=== PATIENT | male | born 1935 | race Caucasian/White ===

== ENCOUNTER 2017-02-02 11:20 | Inpatient (IN) | payer OTHER ==
[~2017-02-02] VITALS: Ht 182.9 cm; Wt 62.0 kg
[~2017-02-02 11:20] MED LIST: ACIDOPHILUS-PE1 EAC2 PO; ASPIR-TRIN325 M1 PO
[2017-02-02 12:15] LABS: EOSINOPHIL (%) 0.2 % (0-5); HEMATOCRIT 46.5 % (38.0-50.0); IMMATURE GRANULOCYTE (%) 0.4 % (0.0-0.7); INSTRUMENT ABS NEUTROPHIL CT 4.2 K/uL; LYMPHOCYTE COUNT 0.9 K/uL (1.0-2.8); MCH 31.4 PG (29.0-34.0); MCHC 30.8 G/DL (30.0-36.0); MEAN PLAT.VOLUME 10.9 uM^3 (9.0-12.4); MONOCYTE (%) 5.4 % (3-12); MONOCYTE COUNT 0.3 K/uL (0-0.8); NEUTROPHIL (%) 77.7 % (45-76); NEUTROPHIL COUNT 4.2 K/uL (1.8-6.4); PLATELET COUNT 194 K/uL (156-360); RBC DIS.WIDTH-CV 13.2 % (11.8-14.6); RED BLOOD COUNT 4.56 M/uL (4.00-5.50); WHITE BLOOD COUNT 5.4 K/uL (4.1-10.2)
[2017-02-02 12:23] LABS: INTER. NORMALIZED RATIO 1.5
[2017-02-02 12:42] LABS: GLUCOSE 136 mg/dL (70-99)
[2017-02-02 12:43] LABS: ANION GAP 8 MEQ/L (2-14)
[2017-02-02 12:46] LABS: GFR ESTIMATE (CALCULATED) 57 mL/min/
[2017-02-02 12:47] LABS: UREA NITROGEN (BUN) 40 mg/dL (9-23)
[2017-02-02 12:48] LABS: CHLORIDE 138 mEq/L (99-109)
[2017-02-02 12:49] LABS: SODIUM 171 mEq/L (136-147)
[2017-02-02 12:51] LABS: TROP-I INTERPRETATION NEGATIVE
[2017-02-02] MEDS ORDERED: EXELON PATCH9.5 MG TD (14:00)
[2017-02-02] MEDS ORDERED: MULTAQ400 MG PO (14:01)
[2017-02-02] MEDS ORDERED: MEMANTINE HCL10 MG PO (14:06)
[2017-02-02] MEDS ORDERED: OMEGA 3-6-9 11200 MG PO (14:12)
[2017-02-02] MEDS ORDERED: CULTURELLE KID1 EAC1 PO (14:21)
[2017-02-02] MEDS ORDERED: ESCITALOPRA5 MG/5 ML PO (14:22)
[2017-02-02] MEDS ORDERED: MILK OF MAGN PO (14:26)
[2017-02-02] MEDS ORDERED: BISAC-EVAC10 MG PR (14:27)
[2017-02-02] MEDS ORDERED: FLEET ENEMA-AD118 ML PR (14:29)
[2017-02-02] MEDS ORDERED: DOUNEB AEROSOL (14:38)
[2017-02-02 15:39] LABS: ADD MIUA? YES; BILIRUBIN NEGATIVE; BLOOD MODERATE; COLOR AMBER ((YELLOW)); GLUCOSE (STRIP) NEGATIVE; KETONES 5; LEUKOCYTES TRACE; NITRITE NEGATIVE; PROTEIN (STRIP) 30; SPECIFIC GRAVITY 1.023 (1.000-1.030)
[2017-02-02 15:45] LABS: BACTERIA NONE SEEN /HPF; EPITHELIAL CELLS RARE /HPF; MUCUS TRACE /LPF; RED BLOOD CELLS 30-40 /HPF (0-5); UCUL ADDED? YES
[2017-02-02 18:32] VITALS: BP 96/64
[2017-02-02 22:24] VITALS: BP 100/63
[2017-02-03 04:14] VITALS: BP 138/72
[2017-02-03 05:58] LABS: HEMATOCRIT 40.8 % (38.0-50.0); MCH 31.1 PG (29.0-34.0); MCHC 29.4 G/DL (30.0-36.0); MCV 105.7 FL (86-99); PLATELET COUNT 159 K/uL (156-360); RBC DIS.WIDTH-CV 13.3 % (11.8-14.6); RED BLOOD COUNT 3.86 M/uL (4.00-5.50); WHITE BLOOD COUNT 7.7 K/uL (4.1-10.2)
[2017-02-03 07:29] VITALS: BP 130/70
[2017-02-03 09:21] LABS: CHLORIDE 140 MEQ/L (99-109); GFR ESTIMATE (CALCULATED) > 59 mL/min/; GLUCOSE 111 mg/dL (70-99); POTASSIUM 3.7 MEQ/L (3.7-5.4); SODIUM 176 MEQ/L (136-147); UREA NITROGEN (BUN) 39 mg/dL (9-23)
[2017-02-03 11:31] VITALS: BP 128/70
[2017-02-03 15:49] VITALS: BP 109/72
[2017-02-03 20:32] VITALS: BP 120/71
[2017-02-04 01:16] VITALS: BP 100/59
[2017-02-04 04:30] VITALS: BP 110/70
[2017-02-04 06:44] LABS: ANION GAP 6 MEQ/L (2-14); CHLORIDE 138 MEQ/L (99-109); GFR ESTIMATE (CALCULATED) > 59 mL/min/; GLUCOSE 108 mg/dL (70-99); POTASSIUM 3.5 MEQ/L (3.7-5.4); SAMPLE HEMOLYSIS CHECK 0; SAMPLE ICTERIC CHECK 0; SAMPLE LIPEMIA CHECK 0; UREA NITROGEN (BUN) 30 mg/dL (9-23)
[2017-02-04 06:49] LABS: SODIUM 170 MEQ/L (136-147)
[2017-02-04 07:45] VITALS: BP 115/62
[2017-02-04 11:27] VITALS: BP 108/70
[2017-02-04 15:35] VITALS: BP 106/61
[2017-02-05] VITALS (7 sets, daily range): BP systolic 101–118; BP diastolic 53–63
[2017-02-05 09:13] LABS: ANION GAP 8 MEQ/L (2-14); CHLORIDE 128 MEQ/L (99-109); GFR ESTIMATE (CALCULATED) > 59 mL/min/; GLUCOSE 105 mg/dL (70-99); POTASSIUM 3.5 MEQ/L (3.7-5.4); SAMPLE HEMOLYSIS CHECK 0; SAMPLE ICTERIC CHECK 0; SAMPLE LIPEMIA CHECK 0; SODIUM 162 MEQ/L (136-147); UREA NITROGEN (BUN) 22 mg/dL (9-23)
[2017-02-06 07:24] VITALS: BP 114/61
[2017-02-06 15:31] VITALS: BP 127/73
[2017-02-06 15:36] LABS: POTASSIUM 3.6 mEq/L (3.7-5.4)
[2017-02-06 15:38] LABS: CHLORIDE 121 mEq/L (99-109); GLUCOSE 115 mg/dL (70-99); SODIUM 152 mEq/L (136-147)
[2017-02-06 15:40] LABS: ANION GAP 6 MEQ/L (2-14)
[2017-02-06 15:42] LABS: GFR ESTIMATE (CALCULATED) > 59 mL/min/
[2017-02-06 15:43] LABS: UREA NITROGEN (BUN) 16 mg/dL (9-23)
[2017-02-07] VITALS: BP 92/59
[2017-02-07 08:00] VITALS: BP 125/74
[2017-02-07 08:36] LABS: CHLORIDE 117 MEQ/L (99-109); GLUCOSE 87 mg/dL (70-99); POTASSIUM 3.7 MEQ/L (3.7-5.4); SODIUM 150 MEQ/L (136-147); UREA NITROGEN (BUN) 16 mg/dL (9-23)
[2017-02-07 09:11] LABS: ANION GAP 7 MEQ/L (2-14)
[2017-02-07 09:24] LABS: GFR ESTIMATE (CALCULATED) > 59 mL/min/
[2017-02-07 16:00] VITALS: BP 131/80
[2017-02-07 23:19] VITALS: BP 111/67
[2017-02-08 06:20] LABS: EOSINOPHIL (%) 2.1 % (0-5); EOSINOPHIL COUNT 0.2 K/uL (0-0.3); HEMATOCRIT 33.2 % (38.0-50.0); IMMATURE GRANULOCYTE (%) 0.2 % (0.0-0.7); INSTRUMENT ABS NEUTROPHIL CT 6.4 K/uL; LYMPHOCYTE COUNT 1.1 K/uL (1.0-2.8); MCHC 33.1 G/DL (30.0-36.0); MEAN PLAT.VOLUME 10.4 uM^3 (9.0-12.4); MONOCYTE (%) 5.3 % (3-12); MONOCYTE COUNT 0.4 K/uL (0-0.8); NEUTROPHIL (%) 79.1 % (45-76); NEUTROPHIL COUNT 6.4 K/uL (1.8-6.4); PLATELET COUNT 178 K/uL (156-360); RED BLOOD COUNT 3.44 M/uL (4.00-5.50); WHITE BLOOD COUNT 8.1 K/uL (4.1-10.2)
[2017-02-08 06:21] LABS: MCV 96.5 FL (86-99)
[2017-02-08 06:35] VITALS: BP 107/68
[2017-02-08 06:45] LABS: ANION GAP 7 MEQ/L (2-14); CHLORIDE 108 MEQ/L (99-109); GFR ESTIMATE (CALCULATED) > 59 mL/min/; GLUCOSE 83 mg/dL (70-99); POTASSIUM 4.1 MEQ/L (3.7-5.4); SAMPLE HEMOLYSIS CHECK 0; SAMPLE ICTERIC CHECK 0; SAMPLE LIPEMIA CHECK 0; UREA NITROGEN (BUN) 10 mg/dL (9-23)
[2017-02-08 06:51] LABS: SODIUM 141 MEQ/L (136-147)
[2017-02-08 12:03] VITALS: BP 139/79
[2017-02-08 15:00] VITALS: BP 99/55
[2017-02-09] VITALS: BP 115/68
[2017-02-09 06:08] LABS: ANION GAP 5 MEQ/L (2-14); CHLORIDE 107 MEQ/L (99-109); GFR ESTIMATE (CALCULATED) > 59 mL/min/; GLUCOSE 95 mg/dL (70-99); POTASSIUM 4.4 MEQ/L (3.7-5.4); SAMPLE HEMOLYSIS CHECK 0; SAMPLE ICTERIC CHECK 0; SAMPLE LIPEMIA CHECK 0; SODIUM 140 MEQ/L (136-147); UREA NITROGEN (BUN) 8 mg/dL (9-23)
[2017-02-09 06:35] VITALS: BP 132/73
[2017-02-09 15:02] VITALS: BP 102/65
[2017-02-09 23:18] VITALS: BP 104/55
[2017-02-10 06:24] LABS: ANION GAP 6 MEQ/L (2-14); CHLORIDE 105 MEQ/L (99-109); GFR ESTIMATE (CALCULATED) > 59 mL/min/; GLUCOSE 97 mg/dL (70-99); POTASSIUM 4.5 MEQ/L (3.7-5.4); SAMPLE HEMOLYSIS CHECK 0; SAMPLE ICTERIC CHECK 0; SAMPLE LIPEMIA CHECK 0; SODIUM 138 MEQ/L (136-147); UREA NITROGEN (BUN) 7 mg/dL (9-23)
[2017-02-10 08:00] VITALS: BP 97/53
[2017-02-10 16:43] VITALS: BP 84/56
[2017-02-10 23:04] VITALS: BP 115/69
[2017-02-11 07:12] VITALS: BP 109/61
[2017-02-11 16:09] VITALS: BP 105/58
[2017-02-11 20:00] VITALS: BP 132/75
[2017-02-12 00:43] VITALS: BP 109/55
[2017-02-12 04:00] VITALS: BP 112/85
[2017-02-12 07:30] VITALS: BP 90/53
[2017-02-12 16:00] VITALS: BP 119/65
[2017-02-13 00:10] VITALS: BP 103/56
[2017-02-13 08:20] VITALS: BP 100/56
== END 2017-02-13 14:00 | disposition hospice, home (50) | DRG 177 ==
LOC: EME 11:20 → 5EAST 14:15 → EDOF 14:15 → ENRESERV 14:39 → 5EAST 17:11
PROVIDERS: Emergency Medicine; Internal Medicine
DX: J69.0 Pneumonitis due to inhalation of food and vomit (principal); G93.41 Metabolic encephalopathy; E87.0 Hyperosmolality and hypernatremia; E86.0 Dehydration; G30.9 Alzheimer's disease, unspecified; F02.80 Dementia in other diseases classified elsewhere, unspecified severity, without behavioral disturbance, psychotic disturbance, mood disturbance, and anxiety; G20 Parkinson's disease; M62.81 Muscle weakness (generalized); R13.10 Dysphagia, unspecified; I48.2 Chronic atrial fibrillation; R00.0 Tachycardia, unspecified; R47.01 Aphasia; I10 Essential (primary) hypertension; F32.9 Major depressive disorder, single episode, unspecified; Z68.1 Body mass index [BMI] 19.9 or less, adult; Z80.8 Family history of malignant neoplasm of other organs or systems; Z87.01 Personal history of pneumonia (recurrent)
CPT/HCPCS: 36415; 70450; 71010; 80048; 80053; 81003; 83605; 84484; 85025; 85027; 85610; 85730; 87040; 87086; 92526 GN; 92610 GN; 93005; 94799; 99281; 99285; J0295; J1650; J3480; J7050; J7070